=== PATIENT | female | born 1930 | race Caucasian/White ===

== ENCOUNTER 2017-02-18 11:05 | Emergency (ER) | payer OTHER, MEDICARE ==
--- NOTE | 2017-02-18 11:08 | PDOC ---
History of Present Illness - General Chief Complaint: Injury Stated Complaint: left wrist swelling an dpain s/p fall Time Seen by Provider: 02/18/17 11:06 - History of Present Illness Initial Comments: 02/18/17 11:15 86yo female presents ambulatory from home c/o R wrist pain. Pt states she was ice skating last night when she fell on an outstretched hand (R hand). Pt is RHD. Pt states she did not hit her head. Denies loc. No neck or back pain. No elbow pain. C/o pain to the R wrist. States she was able to get up and ice skate after the fall and was able to drive home last night. States she did not have pain last night, but developed pain today. Pt denies paresthesias. Denies numbness/tingling. denies cp/sob/abd pain/n/v/d/eye pain. No blurred vision. No other complaints. PMHx: denies Home meds: denies PSHx: hernia repair, pelvic sx, R knee sx Allergies: NKDA Denies smoking, etoh, drugs Past History - Past Medical History Allergies/Adverse Reactions: Allergies Allergy/AdvReac Type Severity Reaction Status Date / Time No Known Allergies Allergy Verified 02/18/17 11:06 Home Medications: Ambulatory Orders Biotin 1 mg PO ASDIR capsule 09/08/16 Cholecalciferol (Vitamin D3) [Vitamin D3] 2,000 unit PO DAILY tablet 09/08/16 - Surgical History Orthopedic Surgery: Yes - Suicide/Smoking/Psychosocial Hx Smoking History: Never smoked Hx Alcohol Use: No Drug/Substance Use Hx: No Substance Use Type: None Review of Systems - Review of Systems Able to Perform ROS?: Yes Is the patient limited Greek proficient: No Constitutional: No: Chills, Fever HEENTM: No: Eye Pain, Blurred Vision, Nose Congestion Respiratory: No: Cough, Shortness of Breath, Wheezing Cardiac (ROS): No: Chest Pain, Irregular Heart Rate, Palpitations, Syncope ABD/GI: No: Abdominal Distended, Diarrhea, Nausea, Vomiting : No: Burning, Dysuria Musculoskeletal: Yes: Joint Pain, Joint Swelling, Other (right wrist and hand swelling). No: Back Pain Integumentary: Yes: Bruising, Other (swelling to R wrist and hand, ecchymosis to wrist and hand) Neurological: No: Headache, Numbness, Paresthesia, Tremors, Weakness, Ataxia, Dizziness All Other Systems: Reviewed and Negative *Physical Exam - Vital Signs 02/18/17 11:20 Selected Entries 02/18/17 11:06 Temperature 98 F Pulse Rate 72 Respiratory 18 Rate Blood Pressure 150/67 Blood Pressure 94 Mean O2 Sat by Pulse 98 Oximetry (%) Weight 63.503 kg - Physical Exam General Appearance: Yes: Nourished, Appropriately Dressed. No: Apparent Distress HEENT: positive: EOMI, Normal Voice Neck: positive: Supple Respiratory/Chest: positive: Lungs Clear, Normal Breath Sounds. negative: Respiratory Distress Cardiovascular: positive: Regular Rhythm, Regular Rate Gastrointestinal/Abdominal: positive: Soft. negative: Guarding, Rebound Musculoskeletal: positive: Normal Inspection. negative: Vertebral Tenderness Extremity: positive: Normal Capillary Refill, Inflammation, Other (r hand and wrist swelling, ttp over distal radius and ulna/ttp across wrist, no ttp across metacarpals, brisk cap refill, sensation intact distal, muscle strength intact distal, finishing range feeder strength intact). 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 NML intact, Fully Oriented, Alert, Normal Mood/ Affect, Normal Response, Motor Strength 5/5 Procedures - Splinting Splint Location: Right: Wrist (volar splint applied, patient tolerated the procedure well) Pre-Proc Neuro Vasc Exam: normal Hand-Made Type: orthoglass Splint Type: Yes: Volar Post-Proc Neuro Vasc Exam: normal Shaan Bandage: 3" Sling: Yes Complications: No Medical Decision Making - Medical Decision Making 02/18/17 11:15 a/p: 86yo with FOOSH injury yesterday -will check xray -rhd -currently declines pain medicine 02/18/17 12:07 radiology shows distal radius impacted fracture and ulnar styloid fracture. pt placed in a splint and sling stable for d/c to home recommended patient follow up with ortho and pmd ice and elevate tylenol for pain *DC/Admit/Observation/Transfer Diagnosis at time of Disposition: Distal radius fracture, right, Fracture of ulnar styloid - Discharge Dispostion Disposition: HOME Condition at time of disposition: Stable Admit: No - Referrals Referrals: Dwaine Mccoy MD [Staff Physician] - - Patient Instructions Printed Discharge Instructions: How to Use a Sling, DI for Distal Radius Fracture Additional Instructions: Please apply ice - 20 min on and 20 min off Please keep the arm elevated Please make an appointment to follow up with the orthopedist. Please also follow up with your PMD. Please return to the ED with any further concerns. - Post Discharge Activity
[2017-02-18] MEDS ORDERED: ACETAMINOPHEN 325 MG TABLET (FP) PO ONE (11:19)
[2017-02-18] MEDS ORDERED: ACETAMINOPHEN 325 MG TABLET (FP) ONE (11:20)
[2017-02-18 11:23] VITALS: BP 150/67; PULSE 72; TEMP 98; BMI 21.9
== END 2017-02-18 12:36 | disposition home or self-care (01) ==
LOC: FER 11:05
PROC: 2W3CX1Z Immobilization of Right Lower Arm using Splint (ICD-10-PCS; principal; 2017-02-18)
DX: W18.39XA Other fall on same level, initial encounter (principal); Y93.21 Activity, ice skating; Y92.330 Ice skating rink (indoor) (outdoor) as the place of occurrence of the external cause
CPT/HCPCS: 73090-TC-RT; 73110-TC-RT; 73130-TC-RT; 99283-25